=== PATIENT | male | born 1965 | race Caucasian/White ===

== ENCOUNTER 2017-06-16 18:22 | Inpatient (IN) | payer OTHER ==
[2017-06-16 20:02] VITALS: BP 123/68
[2017-06-16] MEDS ORDERED: SODIUM CHLORIDE FLUSH 10 ML SYR INJ PRN (20:15)
[2017-06-16] MEDS ORDERED: MAGNESIUM HYDROXIDE 30 ML UDC PO PRN (21:00)
[2017-06-16] MEDS ORDERED: BISMUTH SUBSALICYLATE 262 MG/15 ML 8OZ BTL PO PRN (21:00)
[2017-06-16] MEDS ORDERED: ZOLPIDEM TARTRATE 5 MG TAB PO PRN (21:00)
[2017-06-16] MEDS ORDERED: HYDROCODONE/APAP 5MG-325MG TAB PO PRN ×2 (21:00)
[2017-06-16] MEDS ORDERED: SODIUM CHLORIDE 0.9% 250ML 250 ML ONE (21:27)
[2017-06-16 21:31] LABS: INR 1.35; PROTHROMBIN TIME 15.7 seconds (11.9-14.5)
[2017-06-16 21:32] LABS: PARTIAL THROMBOPLASTIN TIME 30.9 seconds (23.8-35.5)
[2017-06-16] MEDS ORDERED: PIPER-TAZ 3.375 GM 50 ML IV SCH (22:00)
[2017-06-16] MEDS ORDERED: DEXTROSE 50% SYRINGE 50 ML IV PRN (22:15)
[2017-06-16] MEDS: PROMETHAZINE 25MG/ NS 50ML (IV) IV PRN (22:29)
--- NOTE | 2017-06-16 22:37 | Diagnostic Imaging Report ---
FOOT LEFT COMPLETE Comparison: None Clinical history: Osteomyelitis left foot Findings: Patchy demineralization of the base fifth digit metatarsal with intra-articular fracture. Associated soft tissue swelling. Impression: Intra-articular (subacute) fracture of the base of the fifth metatarsal. Patchy bony demineralization most consistent with underlying infection/osteomyelitis. Nonemergent follow-up MRI with and without IV contrast could be performed to better evaluate extent of disease. Signed by: Dr Brittaney Law MD on 06/16/2017 10:33 PM
[2017-06-16] MEDS: VANCOMYCIN 1GM/NS 250 ML 250 ML IV SCH (23:05)
[2017-06-16 23:45] VITALS: BP 128/72
[2017-06-17 01:48] VITALS: BP 123/68
[2017-06-17] MEDS: PROMETHAZINE 25MG/ NS 50ML (IV) IV PRN (02:52)
[2017-06-17 04:00] VITALS: BP 117/67
[2017-06-17] MEDS: PIPER-TAZ 3.375 GM 50 ML IV SCH ×3 (05:23→17:41)
[2017-06-17 06:02] LABS: BASOPHILS % 0.2 % (0.0-1.0); HEMATOCRIT 33.1 % (38.2-49.6); HEMOGLOBIN 11.4 g/dL (14.0-18.0); LYMPHOCYTES # (AUTO) 2.1 (1.0-3.2); LYMPHOCYTES % 12.3 % (18.0-39.1); MEAN CORPUSCULAR HEMOGLOBIN 30.1 pg (28-32); MEAN CORPUSCULAR HGB CONC 34.4 g/dL (31-35); MEAN CORPUSCULAR VOLUME 87.3 fL (81-99); MONOCYTES # (AUTO) 1.5 (0.2-0.8); MONOCYTES % 9.1 % (4.4-11.3); NEUTROPHILS # (AUTO) 13.2 (2.1-6.9); NEUTROPHILS % 77.9 % (38.7-80.0); PLATELET COUNT 288 x10e3/uL (140-360); RED BLOOD COUNT 3.79 x10e6/uL (4.3-5.7); RED CELL DISTRIBUTION WIDTH 11.4 % (11.7-14.4)
[2017-06-17 06:32] LABS: ALANINE AMINOTRANSFERASE 8 IU/L (0-55); ALBUMIN 2.8 g/dL (3.5-5.0); ALBUMIN/GLOBULIN RATIO 0.7 (0.8-2.0); ALKALINE PHOSPHATASE 79 IU/L (40-150); ANION GAP 11.7 mmol/L (8-16); BLOOD UREA NITROGEN 16 mg/dL (7-26); BUN/CREATININE RATIO 17 (6-25); CALCIUM 8.9 mg/dL (8.4-10.2); CARBON DIOXIDE 24 mmol/L (22-29); CHLORIDE 99 mmol/L (98-107); CREATININE, SERUM 0.95 mg/dL (0.72-1.25); EST GLOMERULAR FILTRATION RATE > 60 ML/MIN (60-); GLUCOSE 261 mg/dL (74-118); POTASSIUM 3.7 mmol/L (3.5-5.1); SODIUM 131 mmol/L (136-145)
--- NOTE | 2017-06-17 06:40 | Diagnostic Imaging Report ---
CHEST SINGLE (PORTABLE), 06/17/2017 7:00 AM Technique: CHEST SINGLE (PORTABLE) Comparison: None available. Clinical history: Surgical clearance, foot surgery Findings: Lingular atelectasis or scarring. Otherwise normal appearance of the heart, mediastinum, lungs and pleural spaces. Impression: 1. Lines/Tubes: None 2. No acute abnormality. Signed by: Dr Brittaney Law MD on 06/17/2017 6:36 AM
[2017-06-17] MEDS: INSULIN REGULAR, HUMAN 100 UNIT/1 ML 3ML VIAL SQ SCH ×4 (07:30→20:42)
[2017-06-17] MEDS: GLIPIZIDE 5 MG TAB ER PO SCH (08:15)
[2017-06-17] MEDS: VANCOMYCIN 1GM/NS 250 ML 250 ML IV SCH ×2 (08:15→21:25)
[2017-06-17] MEDS: LISINOPRIL 20 MG TAB PO SCH (08:15)
--- NOTE | 2017-06-17 11:08 | Diagnostic Imaging Report ---
TECHNIQUE: Magnetic resonance imaging of the left hindfoot was performed WITHOUT injected contrast. COMPARISON: Radiograph April 15, 2018 HISTORY: Pain, evaluate for osteomyelitis FINDINGS: Soft tissue ulceration of the lateral midfoot with sinus tract extending to the adjacent osseous structures. Extensive osteomyelitis within the fifth metatarsal from the base and extending distally. Probable mild osteomyelitis of the plantar cuboid Patchy heterogeneous marrow throughout the remainder of the midfoot and hindfoot. Atrophy of the foot musculature. IMPRESSION: Soft tissue ulceration of the lateral midfoot with extensive osteomyelitis of the fifth metatarsal and probable mild osteomyelitis of the plantar cuboid. Signed by: Dr. Angus Nesbitt M.D. on 06/17/2017 11:04 AM
--- NOTE | 2017-06-17 11:54 | Cardiology Report ---
DATE OF STUDY: June 17, 2017 DOPPLER SCAN OF LOWER EXTREMITIES VEINS BRICK GRADER: Chito Silveira MD DICTATION STOPPED AT THIS POINT. Job#: [id number] MH
[2017-06-17 12:00] VITALS: BP 108/63
--- NOTE | 2017-06-17 12:23 | Cardiology Report ---
DATE OF STUDY: June 17, 2017 DOPPLER SCAN OF THE LOWER EXTREMITY VEINS AGE: A 52-year-old male. ATTENDING PHYSICIAN: Tree Cain MD The lower extremity veins were interrogated using the duplex scanning method. The interrogation however appears to be limited and suboptimal in quality. The veins appear to be compressible. No definite deep venous thrombosis can be identified. CONCLUSIONS 1. Technically limited study with several areas not well visualized. 2. In the areas that were well visualized, no definite deep venous thrombosis could be identified bilaterally. Job#: [id number] PAT cc: Tree Cain MD
--- NOTE | 2017-06-17 15:26 | Consultation ---
DATE OF CONSULTATION: June 17, 2017 REASON FOR ADMISSION: Osteomyelitis, septicemia, left foot. CHIEF COMPLAINT AND HISTORY OF CHIEF COMPLAINT: Mr. Mynor Pierce is a most pleasant, 52-year-old gentleman who presents to [facility] for admission with osteomyelitis and signs and symptoms consistent with septicemia. Osteomyelitis is in the area of the 5th metatarsal of the left foot. The patient's previous medical history includes diabetes, hypertension and hypercholesterolemia. He has had previous foot infections and ulcerations which have healed without incident. REVIEW OF SYSTEMS: The patient has nausea, vomiting, fatigue, fever, chills on admission. He denies chest pain or palpitations. He states that he was in his normal state of health when he started noticing a red, swollen, draining area from the lateral aspect of the 5th metatarsal of the left foot. It became increasingly swollen, and he began to have the symptoms associated with fatigue and septicemia, which prompted his presentation to my office and ultimately admission to the hospital for IV antibiotics, further medical workup and treatment. PHYSICAL EXAMINATION/LOWER EXTREMITIES VASCULAR STATUS: The patient has palpable pedal pulses. NEUROLOGIC: He is showing signs and symptoms consistent with distal peripheral neuropathy including lack of sensation to Venus-Reyna monofilament testing. DERMATOLOGIC: There is a large ulcer, approximately 2.5 x 3 cm, on the dorsolateral aspect of the 5th metatarsal of the left foot. This is a full-thickness void through skin, subcutaneous tissue and fat. MUSCULOSKELETAL: Radiographs show mottled, patchy ossification of the lateral aspect of the 5th metatarsal with an intra-articular fracture, Charcot-type breakdown. There is also evidence of osteomyelitis on plain film. MRI, which was performed here in the hospital, is consistent with osteomyelitis through soft-tissue ulceration on the lateral mid foot with extensive osteomyelitis of the 5th metatarsal and probable osteomyelitis of the plantar cuboid. There is the heterogeneous marrow throughout the remainder of the mid foot and hindfoot with atrophy of the foot musculature. The ulceration with sinus tract is adjacent to the 5th met base where the extensive osteomyelitis is present. DIAGNOSIS: Osteomyelitis of at least 2 bones in the left foot with cellulitis and signs and symptoms consistent with septicemia. Deep wound cultures and sensitivities have been taken. The patient's white count is elevated at 17,000, and he is febrile on admission. The patient will have evaluation for vascular status, infectious disease consultation with Dr. Mendez, medical management by Dr. Cain, and IV antibiotics accordingly. Local wound care was initiated with a Betadine wet-to-dry to facilitate drying of the area. He will remain minimal to nonweightbearing. I will follow with him next week and continue on IV antibiotics and local wound care in the interim. Thank you very much, Dr. Cain and Dr. Mendez for your assistance on this case. Job#: [id number]
--- NOTE | 2017-06-17 15:40 | Consultation ---
DATE OF CONSULTATION: INFECTIOUS DISEASE CONSULTATION REASON FOR CONSULTATION: Osteomyelitis of the foot. HISTORY OF PRESENT ILLNESS: Thank you so much for asking me to see this patient. This is a patient who is a very pleasant 52-year-old gentleman who has history of diabetes mellitus, who works as a teacher. Apparently a month ago or so he got new running shoes and he was wearing it. The patient had a blister on his foot. He never made much of it, but it was getting progressively worse and started to have drainage. He went to see Dr. Garrido. Apparently he looked ill, and his office directed him to come to the hospital to be admitted. Patient was immediately started on antibiotic. He is feeling a little better. PAST MEDICAL HISTORY: This patient has a past medical history of diabetes mellitus with neuropathy, Charcot joint. He also has hypertension. PAST SURGICAL HISTORY: He denies. ALLERGIES: NKA. SOCIAL HISTORY: There is no smoking, drug abuse, alcohol abuse. FAMILY HISTORY: Otherwise hypertension, diabetes. REVIEW OF SYSTEMS HEENT: There is no headache or visual changes, hearing changes. GI: There is no nausea, no vomiting, no diarrhea. CARDIAC: There is no arrhythmia. NEURO: No seizure activity. SKIN: There is no other rash. JOINTS: No erythema or edema. ALL OTHER SYSTEMS: Within normal limits. LABORATORY DATA: On admission white count 16.9, hemoglobin 11.4, hematocrit 33. He had sed rate of 93. Sodium 131, potassium 3.7, creatinine of 0.95. C-reactive protein was pending. His cultures are still pending. He had an MRI of the foot with soft-tissue ulceration of the lateral midfoot with extensive osteomyelitis of the 5th metatarsal and possibly plantar cuboid. PHYSICAL EXAMINATION GENERAL: He is currently alert, oriented, does not seem to be in acute distress. VITAL SIGNS: Stable. Currently afebrile. HEENT: He does not appear icteric. NECK: Supple. CHEST: Clear bilaterally. HEART: S1 and S2. No S3 or S4, no murmur. ABDOMEN: Soft. Bowel sounds present. No tenderness. No hepatosplenomegaly. EXTREMITIES: There is an ulcer on the foot. IMPRESSION 1. Osteomyelitis of the foot in a patient who has diabetes mellitus, hypertension. Patient is going for surgical debridement next week. Discussed with Dr. Garrido. Will start him on intravenous. He is on vancomycin and Zosyn. Will obtain wound cultures. Will get a sed rate, C-reactive protein. 2. Will arrange outpatient IV antibiotic eventually. 3. Diabetes. 4. Charcot joint. 5. Hypertension. 6. Perhaps when the patient came he was a little bit septic with this, feeling weak and leukocytosis, but clinically he seems better now. Will follow with you. Job#: [id number] EV
[2017-06-17 16:00] VITALS: BP 104/69
[2017-06-17] MEDS: ACETAMINOPHEN 325 MG TAB PO PRN (16:23)
[2017-06-17 20:00] VITALS: BP 108/69
--- NOTE | 2017-06-17 20:00 | Diagnostic Imaging Report ---
EXAMINATION: CHEST XRAY LINE PLACEMENT INDICATION: \S\PICC placement COMPARISON: Chest x-ray 06/17/2017. FINDINGS: AP view TUBES and LINES: Right PICC line with tip in mid SVC. LUNGS: Lungs are well inflated. Focal airspace opacity in the left lung base. PLEURA: No pleural effusion or pneumothorax. HEART AND MEDIASTINUM: The cardiomediastinal silhouette is unremarkable. BONES AND SOFT TISSUES: No acute osseous lesion. Soft tissues are unremarkable. UPPER ABDOMEN: No free air under the diaphragm. IMPRESSION: 1. Right PICC line with tip at mid SVC. 2. Focal airspace opacity in the left lung base, likely pneumonia. Signed by: Dr. Alex Díaz M.D. on 06/17/2017 7:56 PM
[2017-06-17] MEDS: SIMVASTATIN 20 MG TAB PO SCH (20:36)
[2017-06-17 21:52] VITALS: BP 108/69
[2017-06-18] VITALS (7 sets, daily range): BP systolic 102–118; BP diastolic 66–82
[2017-06-18] MEDS: PIPER-TAZ 3.375 GM 50 ML IV SCH ×4 (00:41→18:04)
[2017-06-18] MEDS: ACETAMINOPHEN 325 MG TAB PO PRN ×2 (01:54→16:16)
[2017-06-18] MEDS: INSULIN REGULAR, HUMAN 100 UNIT/1 ML 3ML VIAL SQ SCH ×4 (08:17→21:07)
[2017-06-18] MEDS: VANCOMYCIN 1GM/NS 250 ML 250 ML IV SCH ×2 (08:17→21:01)
[2017-06-18] MEDS: LISINOPRIL 20 MG TAB PO SCH (08:17)
[2017-06-18] MEDS: GLIPIZIDE 5 MG TAB ER PO SCH (08:17)
--- NOTE | 2017-06-18 14:31 | Cardiology Report ---
DATE OF STUDY: DOPPLER SCAN OF THE LOWER EXTREMITY ARTERIES A 52-year-old male. The lower extremity arteries were interrogated using the duplex scanning method. The waveforms were predominantly biphasic and triphasic throughout. No segmental pressure measurements were submitted for interpretation. CONCLUSIONS: 1. No segmental pressure measurements or ankle brachial indices submitted for interpretation. 2. Based on waveforms, there is no high-grade stenosis or flow impairment involving the major arteries of the lower extremities bilaterally. Job#: [id number] EV cc:BRANDON BRANDT MD
[2017-06-18] MEDS: SIMVASTATIN 20 MG TAB PO SCH (21:01)
[2017-06-19] VITALS: BP 117/69
[2017-06-19] MEDS: PIPER-TAZ 3.375 GM 50 ML IV SCH ×4 (00:25→18:08)
[2017-06-19 04:00] VITALS: BP 112/72
[2017-06-19 07:17] LABS: BASOPHILS # (AUTO) 0.1 (0.0-0.1); BASOPHILS % 0.5 % (0.0-1.0); EOSINOPHILS # (AUTO) 0.1 (0.0-0.4); EOSINOPHILS % 1.4 % (0.0-6.0); HEMATOCRIT 33.6 % (38.2-49.6); HEMOGLOBIN 11.4 g/dL (14.0-18.0); LYMPHOCYTES # (AUTO) 2.1 (1.0-3.2); LYMPHOCYTES % 21.9 % (18.0-39.1); MEAN CORPUSCULAR HEMOGLOBIN 30.2 pg (28-32); MEAN CORPUSCULAR HGB CONC 33.9 g/dL (31-35); MEAN CORPUSCULAR VOLUME 89.1 fL (81-99); MONOCYTES # (AUTO) 0.9 (0.2-0.8); MONOCYTES % 9.7 % (4.4-11.3); NEUTROPHILS # (AUTO) 6.2 (2.1-6.9); NEUTROPHILS % 66.1 % (38.7-80.0); PLATELET COUNT 304 x10e3/uL (140-360); RED BLOOD COUNT 3.77 x10e6/uL (4.3-5.7); RED CELL DISTRIBUTION WIDTH 11.5 % (11.7-14.4)
[2017-06-19] MEDS: INSULIN REGULAR, HUMAN 100 UNIT/1 ML 3ML VIAL SQ SCH ×4 (07:30→20:25)
[2017-06-19 07:40] LABS: ANION GAP 10.6 mmol/L (8-16); BLOOD UREA NITROGEN 8 mg/dL (7-26); BUN/CREATININE RATIO 9 (6-25); CALCIUM 8.4 mg/dL (8.4-10.2); CARBON DIOXIDE 28 mmol/L (22-29); CHLORIDE 99 mmol/L (98-107); CREATININE, SERUM 0.85 mg/dL (0.72-1.25); EST GLOMERULAR FILTRATION RATE > 60 ML/MIN (60-); GLUCOSE 340 mg/dL (74-118); POTASSIUM 3.6 mmol/L (3.5-5.1); SODIUM 134 mmol/L (136-145)
[2017-06-19 07:59] VITALS: BP 105/56
[2017-06-19] MEDS: VANCOMYCIN 1GM/NS 250 ML 250 ML IV SCH ×2 (09:00→20:29)
[2017-06-19] MEDS ORDERED: INSULIN DETEMIR 100 UNIT/ML PEN SQ SCH (09:00)
[2017-06-19] MEDS: LISINOPRIL 20 MG TAB PO SCH (09:00)
[2017-06-19] MEDS: GLIPIZIDE 5 MG TAB ER PO SCH (09:00)
[2017-06-19] MEDS: INSULIN DETEMIR 100 UNIT/ML PEN SQ SCH (20:25)
[2017-06-19 20:26] VITALS: BP 115/68
[2017-06-19] MEDS: ACETAMINOPHEN 325 MG TAB PO PRN (20:29)
[2017-06-19] MEDS: SIMVASTATIN 20 MG TAB PO SCH (20:29)
[2017-06-20] VITALS: BP 112/68
[2017-06-20] MEDS: PIPER-TAZ 3.375 GM 50 ML IV SCH ×2 (00:54→05:54)
[2017-06-20 04:00] VITALS: BP 124/67
[2017-06-20 07:10] LABS: BASOPHILS % 0.5 % (0.0-1.0); EOSINOPHILS # (AUTO) 0.3 (0.0-0.4); EOSINOPHILS % 3.1 % (0.0-6.0); HEMATOCRIT 32.1 % (38.2-49.6); HEMOGLOBIN 10.8 g/dL (14.0-18.0); LYMPHOCYTES % 24.1 % (18.0-39.1); MEAN CORPUSCULAR HEMOGLOBIN 29.7 pg (28-32); MEAN CORPUSCULAR HGB CONC 33.6 g/dL (31-35); MEAN CORPUSCULAR VOLUME 88.2 fL (81-99); MONOCYTES # (AUTO) 0.9 (0.2-0.8); MONOCYTES % 10.4 % (4.4-11.3); NEUTROPHILS # (AUTO) 5.1 (2.1-6.9); NEUTROPHILS % 61.4 % (38.7-80.0); PLATELET COUNT 297 x10e3/uL (140-360); RED BLOOD COUNT 3.64 x10e6/uL (4.3-5.7); RED CELL DISTRIBUTION WIDTH 11.4 % (11.7-14.4)
[2017-06-20] MEDS: INSULIN REGULAR, HUMAN 100 UNIT/1 ML 3ML VIAL SQ SCH ×4 (07:30→20:28)
--- NOTE | 2017-06-20 07:44 | Progress Note ---
DATE: June 19, [address] Peter dictating covering for Dr. Tony Garrido. The patient was seen at bedside. No apparent distress. His white blood count is improving. He is now at 9.4 from 16.99. His MRI is positive for osteomyelitis of the 5th metatarsal base in the cuboid. Currently, he is on IV antibiotics, which he is responding to. His culture is positive for gram-negative bacillus. It is pending susceptibility. IV antibiotics, he is on vanc and Zosyn. The wound is improving. Erythema and edema are localizing. The culture is still down to the area of the bone. ASSESSMENT 1. Diabetes with neuropathy. 2. Ulcer, grade 3. PLAN: At this point, his responding well to the IV antibiotics and local wound care. The patient is aware that he is going to need a possible debridement of the nonviable tissue to include bone. Dr. Garrido will continue to follow. The plan is for possible debridement early next week. Job#: [id number] ANKITA
[2017-06-20 08:00] VITALS: BP 117/75
[2017-06-20] MEDS: GLIPIZIDE 5 MG TAB ER PO SCH (08:00)
[2017-06-20] MEDS: LISINOPRIL 20 MG TAB PO SCH (09:00)
[2017-06-20] MEDS: INSULIN DETEMIR 100 UNIT/ML PEN SQ SCH ×2 (09:00→20:29)
[2017-06-20] MEDS: VANCOMYCIN 1GM/NS 250 ML 250 ML IV SCH ×2 (09:00→20:26)
[2017-06-20 12:00] VITALS: BP 115/70
[2017-06-20] MEDS: MEROPENEM 500 MG VIAL IV SCH ×2 (12:00→17:15)
[2017-06-20] MEDS ORDERED: MEROPENEM 500MG 500 MG in SODIUM CHLORIDE 0.9% 50ML 50 ML IV SCH (12:00)
--- NOTE | 2017-06-20 14:53 | Progress Note ---
DATE: June 20, 2017 Patient seen today relating he is feeling much better. Labs were reviewed. White count is significantly reduced. The patient is afebrile today. He has been on IV antibiotics with local wound care over the weekend. At this point, the foot is quite cellulitic with a significant amount of edema present. There is necrotic tissue in the wound base, which includes styloid process and its important insertions of peroneal brevis tendon as well as leija dorsiflexors of the foot. What I recommend at this point is further IV antibiotics and local wound care and debridement of all devitalized tissue to include skin, soft tissue, tendon and bone once the most significant part of the cellulitis has resolved, targeting Tuesday morning for this surgery. The patient understands and has agreed to accept all risks inherent to the procedure. I will follow with further surgical consultation and would recommend IV antibiotics after discharge for 6 to 8 weeks via infusion suite or home health as deemed appropriate. Job#: [id number]
[2017-06-20 20:23] VITALS: BP 143/76
[2017-06-20] MEDS: SIMVASTATIN 20 MG TAB PO SCH (20:26)
[2017-06-21] VITALS (7 sets, daily range): BP systolic 118–147; BP diastolic 65–84
[2017-06-21] MEDS: MEROPENEM 500 MG VIAL IV SCH ×4 (00:16→17:52)
[2017-06-21] MEDS: INSULIN REGULAR, HUMAN 100 UNIT/1 ML 3ML VIAL SQ SCH ×4 (07:30→20:43)
[2017-06-21] MEDS: GLIPIZIDE 5 MG TAB ER PO SCH (08:00)
[2017-06-21] MEDS: LISINOPRIL 20 MG TAB PO SCH (08:54)
[2017-06-21] MEDS: VANCOMYCIN 1GM/NS 250 ML 250 ML IV SCH ×2 (08:54→21:25)
[2017-06-21] MEDS: INSULIN DETEMIR 100 UNIT/ML PEN SQ SCH ×2 (09:00→20:43)
[2017-06-21] MEDS: SIMVASTATIN 20 MG TAB PO SCH (21:25)
[2017-06-22] MEDS: MEROPENEM 500 MG VIAL IV SCH ×4 (00:17→18:08)
[2017-06-22 00:45] VITALS: BP 133/87
[2017-06-22 05:10] VITALS: BP 146/89
[2017-06-22 08:00] VITALS: BP 144/75
[2017-06-22] MEDS: GLIPIZIDE 5 MG TAB ER PO SCH (08:00)
[2017-06-22] MEDS: LISINOPRIL 20 MG TAB PO SCH (08:30)
[2017-06-22] MEDS: INSULIN DETEMIR 100 UNIT/ML PEN SQ SCH ×2 (08:30→22:10)
[2017-06-22] MEDS: INSULIN REGULAR, HUMAN 100 UNIT/1 ML 3ML VIAL SQ SCH ×4 (08:30→22:09)
[2017-06-22] MEDS: VANCOMYCIN 1GM/NS 250 ML 250 ML IV SCH (09:30)
--- NOTE | 2017-06-22 11:01 | Progress Note ---
DATE: HOSPITAL VISIT Patient is seen today for surgical consent. All questions asked were answered. Patient has agreed to accept all risks inherent of the procedure. He will be transported to the OR for debridement of his left foot to include soft tissue and bone. The patient has agreed to accept all risks inherent to the procedure and will remain on local wound care and IV antibiotics postoperatively. Job#: [id number]
[2017-06-22] MEDS ORDERED: BUPIVACAINE 0.25% 30ML SDV INJ ONE (12:18)
[2017-06-22] MEDS ORDERED: BACITRACIN 50,000 UNIT VIAL ONE (13:25)
[2017-06-22] MEDS ORDERED: VANCOMYCIN HCL 1 GM VIAL ONE (13:25)
[2017-06-22] MEDS ORDERED: ONDANSETRON HCL INJ 2 MG/ML VIAL ONE (15:16)
[2017-06-22] MEDS ORDERED: LIDOCAINE HCL 2% LOCAL INJ 5 ML SDV VIAL INJ ONE (15:16)
[2017-06-22] MEDS ORDERED: PROPOFOL IV EMULSION 10 MG/ML 20 ML VIAL ONE (15:16)
[2017-06-22] MEDS ORDERED: DEXAMETHASONE SOD PHOS INJ 4 MG/ML VIAL ONE (15:16)
[2017-06-22] MEDS ORDERED: SEVOFLURANE INHAL SOLN 250 ML PEN BTL ONE (15:16)
--- NOTE | 2017-06-22 15:44 | Progress Note ---
DATE: Mr. Pierce is doing well. There is no new complaints. PHYSICAL EXAMINATION GENERAL: Alert, oriented, does not seem to be in acute distress. VITAL SIGNS: Stable, currently afebrile. HEENT: Not icteric. NECK: Supple. CHEST: Clear bilaterally. ABDOMEN: Soft. Bowel sounds present. No tenderness. No hepatosplenomegaly. EXTREMITIES: No edema. The patient underwent debridement to the bone and the wound on the left foot today by Dr. Garrido. IMPRESSION: Osteomyelitis of the left foot. He grew Providencia and Streptococcus agalactiae. PLAN: Will arrange for meropenem 500 IV q.8 h. for 8 weeks. Discontinue other antibiotics. Will follow weekly CBC with a chem panel. He will need at least 6-8 weeks of IV antibiotics depending on is progress. Job#: [id number]
[2017-06-22 16:00] VITALS: BP 131/77
[2017-06-22 19:10] VITALS: BP 134/80
[2017-06-22] MEDS ORDERED: MIDAZOLAM HCL 2 MG/2 ML VIAL ONE (19:18)
[2017-06-22] MEDS ORDERED: FENTANYL CITRATE/PF 100MCG/2 ML INJ ONE (19:18)
--- NOTE | 2017-06-22 19:25 | Operative Report ---
DATE OF PROCEDURE: June 22, 2017 AGE: 52 ROOM NUMBER: [facility] PREOPERATIVE DIAGNOSIS: Osteomyelitis with necrotic wound lateral aspect of the left foot. POSTOPERATIVE DIAGNOSIS: Osteomyelitis with necrotic wound lateral aspect of the left foot. TITLE OF OPERATION: Incision and drainage with deep wound debridement through skin, subcutaneous tissue, including bone and joint, left foot. ANESTHESIA: General endotracheal. HEMOSTASIS: A left thigh tourniquet 350 mmHg. PROCEDURE IN DETAIL: The patient was taken to the operating room in a mildly sedated state and placed upon the operating table in supine position. Following induction of general anesthetic, the left lower extremity was elevated at 60 degrees to exsanguinate before inflating the pneumatic thigh tourniquet to 350 mmHg to create hemostasis. Left lower extremity was placed upon the operating table prior to performing the following procedure. The foot had been prepped in usual aseptic manner utilizing Betadine prep, placed on the operating table prior to performing the following procedure. An I and D. A linear longitudinal incision made through the necrotic soft tissue including tendon and subcutaneous tissue on the lateral aspect of the left foot. This wound measuring approximately 5 cm in circumference with the necrotic wound base. Radiographs had shown not only osteomyelitis, but also a fracture of the 5th met base. Incision was deepened via sharp and blunt dissection onto the level of the fractured bone. All superficial wound tissue was reduced and debrided. A very large flap was created dorsally to allow for exposure of the base of the 5th metatarsal, all soft tissue and tendinous insertions, as well as the lateral aspect of the cuboid bone. The necrotic tendon was debrided away and the peroneus longus was left intact as it courses underneath the infected joint space. The remaining tendons were all debrided as necrotic. Fairly significant amount of purulent exudate was present within the joint space itself and the fracture fragments were all identified. The 5th metatarsal base was transected with oscillating saw mid shaft and debrided away from the underlying tissue. The lateral aspect of the 5th met base was also debrided utilizing combination of curettes, rongeur, and oscillating saw. The area was inspected for any further suspicious material none being found. The area was freed of all surrounding and constricting tissues and the flap for closure was fashioned. A significant amount of necrotic tissue that extended into the dorsolateral aspect of the foot as well as plantar lateral aspect of the foot was noted and antibiotic beads were packed into the space dorsally, plantarly, and along the lateral aspect of the wound. The flap closure was created in such a way to allow for re-approximation of the proximal and distal tissues. However, the central portion overlying the large excised wound was packed open with iodoform gauze over the deep tissues and antibiotic beads. After packing, I released the pneumatic thigh tourniquet showed a normal hyperemic flush to all digits of the left foot. Flap closure was noted to be viable and the appropriate mildly compressive dressings were applied. Posterior splint was applied. The area was blocked with 0.5 Marcaine, Decadron [place]. Released the pneumatic thigh tourniquet, showed a normal hyperemic flush to all digits of the left foot. Patient left the operating room with vital signs stable in apparent satisfactory condition, having tolerated both anesthetic and procedure very well. Deep culture and sensitivities had been obtained prior to any antibiotic irrigation or debridement. The bone was sent for biopsy and all remaining tissues were sent for pathological confirmation as well. The patient left the operating room with vital signs stable in apparent satisfactory condition, having tolerated both anesthetic and procedure very well. He will be transported back to the floor for further care and medical stabilization and should be able to transition to outpatient local wound care and continued IV antibiotics for the next 6 to 8 weeks within the next day or 2. Job#: [id number] CQ
[2017-06-22 20:00] VITALS: BP 134/80
[2017-06-22] MEDS: PROMETHAZINE 25MG/ NS 50ML (IV) IV PRN (20:28)
[2017-06-22] MEDS: SIMVASTATIN 20 MG TAB PO SCH (22:08)
[2017-06-23 00:01] VITALS: BP 147/89
[2017-06-23] MEDS: MEROPENEM 500 MG VIAL IV SCH ×4 (00:44→18:17)
[2017-06-23 07:58] VITALS: BP 124/65
[2017-06-23] MEDS: INSULIN REGULAR, HUMAN 100 UNIT/1 ML 3ML VIAL SQ SCH ×4 (08:15→22:05)
[2017-06-23] MEDS: LISINOPRIL 20 MG TAB PO SCH (08:15)
[2017-06-23] MEDS: INSULIN DETEMIR 100 UNIT/ML PEN SQ SCH ×2 (08:15→22:05)
[2017-06-23] MEDS: GLIPIZIDE 5 MG TAB ER PO SCH (08:15)
[2017-06-23 12:07] VITALS: BP 122/70
--- NOTE | 2017-06-23 14:45 | Progress Note ---
DATE: SUBJECTIVE: Patient is seen today status post surgical intervention on his left lower extremity. The wound dressing and posterior splint were removed and underlying tissue evaluated. Flap closure distally and proximally are viable. The central wound base is clean with serosanguineous drainage. No purulent exudate. No foul odor. Packing was removed and replaced today. The remaining void is full thickness and approximately 3 cm in circumference. Will require wound VAC. Wound VAC was ordered, and the patient is okay for discharge once home health and IV antibiotics can be established. Patient understands and will be following with me within 1 week after discharge in the office, but in the interim I will follow him until discharge. Job#: [id number]
[2017-06-23 16:16] VITALS: BP 125/77
[2017-06-23] MEDS ORDERED: CEFTRIAXONE SOD 1 GM VIAL IV SCH (16:30)
[2017-06-23 19:10] VITALS: BP 121/68
[2017-06-23 20:00] VITALS: BP 121/68
[2017-06-23] MEDS: SIMVASTATIN 20 MG TAB PO SCH (22:04)
[2017-06-24] VITALS: BP 133/72
[2017-06-24] MEDS: MEROPENEM 500 MG VIAL IV SCH ×3 (00:35→12:00)
[2017-06-24 04:00] VITALS: BP 128/71
[2017-06-24] MEDS: INSULIN REGULAR, HUMAN 100 UNIT/1 ML 3ML VIAL SQ SCH ×3 (07:30→16:30)
[2017-06-24 08:00] VITALS: BP 128/71
[2017-06-24] MEDS: GLIPIZIDE 5 MG TAB ER PO SCH (08:00)
[2017-06-24 08:15] VITALS: BP 132/84
[2017-06-24] MEDS: INSULIN DETEMIR 100 UNIT/ML PEN SQ SCH (09:00)
[2017-06-24] MEDS: LISINOPRIL 20 MG TAB PO SCH (09:00)
[2017-06-24 16:17] VITALS: BP 119/57
[2017-06-24 16:23] VITALS: BP 119/57
== END 2017-06-24 16:52 | disposition home or self-care (01) | DRG 854 ==
LOC: MED/SURG2 18:22
PROVIDERS: ADMIT Internal Medicine; ATTEND Internal Medicine
PROC: 02HV33Z Insertion of Infusion Device into Superior Vena Cava, Percutaneous Approach (ICD-10-PCS; 2017-06-17)
PROC: 3E01329 Introduction of Other Anti-infective into Subcutaneous Tissue, Percutaneous Approach (ICD-10-PCS; 2017-06-22)
PROC: 0QBP0ZZ Excision of Left Metatarsal, Open Approach (ICD-10-PCS; principal; 2017-06-22 13:04)
DX: A41.89 Other specified sepsis (principal); M86.9 Osteomyelitis, unspecified; E11.610 Type 2 diabetes mellitus with diabetic neuropathic arthropathy; E11.69 Type 2 diabetes mellitus with other specified complication; Z79.4 Long term (current) use of insulin; D64.9 Anemia, unspecified; L97.524 Non-pressure chronic ulcer of other part of left foot with necrosis of bone; E11.65 Type 2 diabetes mellitus with hyperglycemia
CPT/HCPCS: 36415; 36569; 71045; 76000; 80048; 80053; 80202; 82948; 83036; 85025; 85610; 85651; 85730; 86140; 87040; 87071; 87075; 87086; 87186; 87205; 88305; 88311; 93005; 93925; 93970; 97605; C1713; J0696; J1100; J2001; J2185; J2250; J2405; J2543; J2550; J3370; J7050

== ENCOUNTER → 2017-06-29 | Outpatient (CLI) | payer OTHER ==
[~2017-06-29] MED LIST: MINERAL OIL/PETROLAT/GLYCERI 6OZ BTL ONE
== END ==
LOC: WCC 10:00
PROVIDERS: ATTEND Podiatrist Foot Surgery
DX: E11.621 Type 2 diabetes mellitus with foot ulcer (principal); L97.428 Non-pressure chronic ulcer of left heel and midfoot with other specified severity; L97.421 Non-pressure chronic ulcer of left heel and midfoot limited to breakdown of skin; R73.9 Hyperglycemia, unspecified; I10 Essential (primary) hypertension; E78.00 Pure hypercholesterolemia, unspecified
CPT/HCPCS: 36415; 82948

== ENCOUNTER → 2017-07-01 | Outpatient (CLI) | payer OTHER | LOC: WCC 09:47 | PROVIDERS: ATTEND Podiatrist Foot Surgery | DX: E11.621 Type 2 diabetes mellitus with foot ulcer (principal); L97.421 Non-pressure chronic ulcer of left heel and midfoot limited to breakdown of skin; L97.429 Non-pressure chronic ulcer of left heel and midfoot with unspecified severity; R73.9 Hyperglycemia, unspecified; I10 Essential (primary) hypertension | CPT/HCPCS: 36415; 82948 ==

== ENCOUNTER → 2017-07-06 | Outpatient (CLI) | payer OTHER | LOC: WCC 08:35 | PROVIDERS: ATTEND Podiatrist Foot Surgery | DX: E11.621 Type 2 diabetes mellitus with foot ulcer (principal); L97.421 Non-pressure chronic ulcer of left heel and midfoot limited to breakdown of skin; L97.428 Non-pressure chronic ulcer of left heel and midfoot with other specified severity; R73.9 Hyperglycemia, unspecified; I10 Essential (primary) hypertension; E78.00 Pure hypercholesterolemia, unspecified ==

== ENCOUNTER → 2017-07-08 | Outpatient (CLI) | payer OTHER | LOC: WCC 09:35 | PROVIDERS: ATTEND Podiatrist Foot Surgery | DX: E11.621 Type 2 diabetes mellitus with foot ulcer (principal); L97.428 Non-pressure chronic ulcer of left heel and midfoot with other specified severity; R73.9 Hyperglycemia, unspecified; I10 Essential (primary) hypertension; E78.00 Pure hypercholesterolemia, unspecified | CPT/HCPCS: 36415; 82948 ==

== ENCOUNTER → 2017-07-12 | Outpatient (CLI) | payer OTHER | LOC: WCC 09:10 | PROVIDERS: ATTEND Podiatrist Foot Surgery | DX: E11.621 Type 2 diabetes mellitus with foot ulcer (principal); L97.428 Non-pressure chronic ulcer of left heel and midfoot with other specified severity; R73.9 Hyperglycemia, unspecified; I10 Essential (primary) hypertension; E78.00 Pure hypercholesterolemia, unspecified ==

== ENCOUNTER → 2017-07-15 | Outpatient (CLI) | payer OTHER | LOC: WCC 09:59 | PROVIDERS: ATTEND Podiatrist Foot Surgery | DX: E11.621 Type 2 diabetes mellitus with foot ulcer (principal); L97.428 Non-pressure chronic ulcer of left heel and midfoot with other specified severity; R73.9 Hyperglycemia, unspecified; I10 Essential (primary) hypertension; E78.00 Pure hypercholesterolemia, unspecified ==

== ENCOUNTER → 2017-07-19 | Outpatient (CLI) | payer OTHER ==
[2017-07-19 11:37] LABS: BASOPHILS % 0.7 % (0.0-1.0); EOSINOPHILS # (AUTO) 0.2 (0.0-0.4); EOSINOPHILS % 2.7 % (0.0-6.0); HEMOGLOBIN 12.2 g/dL (14.0-18.0); LYMPHOCYTES # (AUTO) 1.7 (1.0-3.2); LYMPHOCYTES % 28.4 % (18.0-39.1); MEAN CORPUSCULAR HEMOGLOBIN 29.1 pg (28-32); MEAN CORPUSCULAR VOLUME 88.3 fL (81-99); MONOCYTES # (AUTO) 0.6 (0.2-0.8); MONOCYTES % 9.7 % (4.4-11.3); NEUTROPHILS # (AUTO) 3.4 (2.1-6.9); NEUTROPHILS % 58.2 % (38.7-80.0); PLATELET COUNT 206 x10e3/uL (140-360); RED BLOOD COUNT 4.19 x10e6/uL (4.3-5.7); RED CELL DISTRIBUTION WIDTH 12.6 % (11.7-14.4)
[2017-07-19 11:57] LABS: ALANINE AMINOTRANSFERASE 12 IU/L (0-55); ALBUMIN 3.5 g/dL (3.5-5.0); ALBUMIN/GLOBULIN RATIO 0.9 (0.8-2.0); ALKALINE PHOSPHATASE 108 IU/L (40-150); ANION GAP 11.3 mmol/L (8-16); BLOOD UREA NITROGEN 14 mg/dL (7-26); BUN/CREATININE RATIO 16 (6-25); CALCIUM 9.2 mg/dL (8.4-10.2); CARBON DIOXIDE 25 mmol/L (22-29); CHLORIDE 94 mmol/L (98-107); CREATININE, SERUM 0.88 mg/dL (0.72-1.25); EST GLOMERULAR FILTRATION RATE > 60 ML/MIN (60-); GLUCOSE 319 mg/dL (74-118); POTASSIUM 4.3 mmol/L (3.5-5.1); SODIUM 126 mmol/L (136-145)
== END ==
LOC: WCC 09:33
PROVIDERS: ATTEND Podiatrist Foot Surgery
DX: E11.621 Type 2 diabetes mellitus with foot ulcer (principal); L97.429 Non-pressure chronic ulcer of left heel and midfoot with unspecified severity; R73.9 Hyperglycemia, unspecified; I10 Essential (primary) hypertension
CPT/HCPCS: 36415; 80053; 83036; 84134; 85025

== ENCOUNTER → 2017-07-22 | Outpatient (CLI) | payer OTHER | LOC: WCC 09:39 | PROVIDERS: ATTEND Podiatrist Foot Surgery | DX: E11.621 Type 2 diabetes mellitus with foot ulcer (principal); L97.428 Non-pressure chronic ulcer of left heel and midfoot with other specified severity; R73.9 Hyperglycemia, unspecified; I10 Essential (primary) hypertension; E78.00 Pure hypercholesterolemia, unspecified ==

== ENCOUNTER → 2017-07-25 | Outpatient (CLI) | payer OTHER | LOC: WCC 08:44 | PROVIDERS: ATTEND Podiatrist Foot Surgery | DX: E11.621 Type 2 diabetes mellitus with foot ulcer (principal); L97.428 Non-pressure chronic ulcer of left heel and midfoot with other specified severity; R73.9 Hyperglycemia, unspecified; I10 Essential (primary) hypertension; E78.00 Pure hypercholesterolemia, unspecified | CPT/HCPCS: 36415; 82948 ==

== ENCOUNTER → 2017-07-28 | Outpatient (CLI) | payer OTHER | LOC: WCC 08:45 | PROVIDERS: ATTEND Podiatrist Foot Surgery | DX: E11.621 Type 2 diabetes mellitus with foot ulcer (principal); L97.428 Non-pressure chronic ulcer of left heel and midfoot with other specified severity; R73.9 Hyperglycemia, unspecified; I10 Essential (primary) hypertension; E78.00 Pure hypercholesterolemia, unspecified ==

== ENCOUNTER → 2017-08-04 | Outpatient (CLI) | payer OTHER ==
[~2017-08-04] MED LIST changes: -MINERAL OIL/PETROLAT/GLYCERI 6OZ BTL ONE; +MUPIROCIN 2% OINT 22 GM TUBE ONE
== END ==
LOC: WCC 08:39
PROVIDERS: ATTEND Podiatrist Foot Surgery
DX: E11.621 Type 2 diabetes mellitus with foot ulcer (principal); L97.428 Non-pressure chronic ulcer of left heel and midfoot with other specified severity; L97.418 Non-pressure chronic ulcer of right heel and midfoot with other specified severity; L97.411 Non-pressure chronic ulcer of right heel and midfoot limited to breakdown of skin; R73.9 Hyperglycemia, unspecified; I10 Essential (primary) hypertension
CPT/HCPCS: 36415; 82948

== ENCOUNTER → 2017-08-08 | Outpatient (CLI) | payer OTHER ==
[~2017-08-08] MED LIST changes: +MINERAL OIL/PETROLAT/GLYCERI 6OZ BTL ONE; -MUPIROCIN 2% OINT 22 GM TUBE ONE
== END ==
LOC: WCC 09:10
PROVIDERS: ATTEND Podiatrist Foot Surgery
DX: E11.621 Type 2 diabetes mellitus with foot ulcer (principal); E11.622 Type 2 diabetes mellitus with other skin ulcer; L97.428 Non-pressure chronic ulcer of left heel and midfoot with other specified severity; L97.418 Non-pressure chronic ulcer of right heel and midfoot with other specified severity; L97.411 Non-pressure chronic ulcer of right heel and midfoot limited to breakdown of skin; L97.319 Non-pressure chronic ulcer of right ankle with unspecified severity; R73.9 Hyperglycemia, unspecified; I10 Essential (primary) hypertension; E78.00 Pure hypercholesterolemia, unspecified
CPT/HCPCS: 36415; 82948

== ENCOUNTER → 2017-08-11 | Outpatient (CLI) | payer OTHER | LOC: WCC 08:49 | PROVIDERS: ATTEND Podiatrist Foot Surgery | DX: E11.621 Type 2 diabetes mellitus with foot ulcer (principal); E11.622 Type 2 diabetes mellitus with other skin ulcer; L97.428 Non-pressure chronic ulcer of left heel and midfoot with other specified severity; L97.418 Non-pressure chronic ulcer of right heel and midfoot with other specified severity; L97.319 Non-pressure chronic ulcer of right ankle with unspecified severity; R73.9 Hyperglycemia, unspecified; I10 Essential (primary) hypertension ==

== ENCOUNTER → 2017-08-16 | Outpatient (CLI) | payer OTHER | LOC: WCC 08:35 | PROVIDERS: ATTEND Podiatrist Foot Surgery | DX: E11.621 Type 2 diabetes mellitus with foot ulcer (principal); E11.622 Type 2 diabetes mellitus with other skin ulcer; L97.428 Non-pressure chronic ulcer of left heel and midfoot with other specified severity; L97.319 Non-pressure chronic ulcer of right ankle with unspecified severity; L97.418 Non-pressure chronic ulcer of right heel and midfoot with other specified severity; R73.9 Hyperglycemia, unspecified; I10 Essential (primary) hypertension ==

== ENCOUNTER → 2017-08-19 | Outpatient (CLI) | payer OTHER | LOC: WCC 09:12 | PROVIDERS: ATTEND Podiatrist Foot Surgery | DX: E11.621 Type 2 diabetes mellitus with foot ulcer (principal); E11.622 Type 2 diabetes mellitus with other skin ulcer; L97.428 Non-pressure chronic ulcer of left heel and midfoot with other specified severity; L97.319 Non-pressure chronic ulcer of right ankle with unspecified severity; L97.418 Non-pressure chronic ulcer of right heel and midfoot with other specified severity; R73.9 Hyperglycemia, unspecified; I10 Essential (primary) hypertension; E78.00 Pure hypercholesterolemia, unspecified | CPT/HCPCS: 36415; 82948 ==

== ENCOUNTER → 2017-08-22 | Outpatient (CLI) | payer OTHER ==
[~2017-08-22] MED LIST changes: +COLLAGENASE OINTMENT 30 GM TUBE ONE; +MUPIROCIN 2% OINT 22 GM TUBE ONE
== END ==
LOC: WCC 08:15
PROVIDERS: ATTEND Podiatrist Foot Surgery
DX: E11.621 Type 2 diabetes mellitus with foot ulcer (principal); E11.622 Type 2 diabetes mellitus with other skin ulcer; L97.428 Non-pressure chronic ulcer of left heel and midfoot with other specified severity; L97.319 Non-pressure chronic ulcer of right ankle with unspecified severity; L97.418 Non-pressure chronic ulcer of right heel and midfoot with other specified severity
CPT/HCPCS: 36415; 82948

== ENCOUNTER → 2017-08-25 | Outpatient (CLI) | payer OTHER | LOC: WCC 09:27 | PROVIDERS: ATTEND Podiatrist Foot Surgery | DX: E11.621 Type 2 diabetes mellitus with foot ulcer (principal); E11.622 Type 2 diabetes mellitus with other skin ulcer; L97.428 Non-pressure chronic ulcer of left heel and midfoot with other specified severity; L97.418 Non-pressure chronic ulcer of right heel and midfoot with other specified severity; L97.319 Non-pressure chronic ulcer of right ankle with unspecified severity ==

== ENCOUNTER → 2017-08-29 | Outpatient (CLI) | payer OTHER | LOC: WCC 09:38 | PROVIDERS: ATTEND Podiatrist Foot Surgery | DX: E11.621 Type 2 diabetes mellitus with foot ulcer (principal); E11.622 Type 2 diabetes mellitus with other skin ulcer; L97.428 Non-pressure chronic ulcer of left heel and midfoot with other specified severity; L97.319 Non-pressure chronic ulcer of right ankle with unspecified severity; L97.418 Non-pressure chronic ulcer of right heel and midfoot with other specified severity; R73.9 Hyperglycemia, unspecified; I10 Essential (primary) hypertension; E78.00 Pure hypercholesterolemia, unspecified ==

== ENCOUNTER → 2017-09-02 | Outpatient (CLI) | payer OTHER ==
[~2017-09-02] MED LIST changes: -MINERAL OIL/PETROLAT/GLYCERI 6OZ BTL ONE; -MUPIROCIN 2% OINT 22 GM TUBE ONE
== END ==
LOC: WCC 09:46
PROVIDERS: ATTEND Podiatrist Foot Surgery
DX: E11.621 Type 2 diabetes mellitus with foot ulcer (principal); E11.622 Type 2 diabetes mellitus with other skin ulcer; L97.428 Non-pressure chronic ulcer of left heel and midfoot with other specified severity; L97.418 Non-pressure chronic ulcer of right heel and midfoot with other specified severity; L97.319 Non-pressure chronic ulcer of right ankle with unspecified severity; R73.9 Hyperglycemia, unspecified; I10 Essential (primary) hypertension; E78.00 Pure hypercholesterolemia, unspecified

== ENCOUNTER → 2017-09-06 | Outpatient (CLI) | payer OTHER | LOC: WCC 08:48 | PROVIDERS: ATTEND Podiatrist Foot Surgery | DX: E11.621 Type 2 diabetes mellitus with foot ulcer (principal); L97.428 Non-pressure chronic ulcer of left heel and midfoot with other specified severity; L97.418 Non-pressure chronic ulcer of right heel and midfoot with other specified severity; R73.9 Hyperglycemia, unspecified; I10 Essential (primary) hypertension; E78.00 Pure hypercholesterolemia, unspecified ==

== ENCOUNTER → 2017-09-09 | Outpatient (CLI) | payer OTHER | LOC: WCC 11:38 | PROVIDERS: ATTEND Podiatrist Foot Surgery | DX: E11.621 Type 2 diabetes mellitus with foot ulcer (principal); R73.9 Hyperglycemia, unspecified; L97.428 Non-pressure chronic ulcer of left heel and midfoot with other specified severity; L97.418 Non-pressure chronic ulcer of right heel and midfoot with other specified severity; I10 Essential (primary) hypertension; E78.00 Pure hypercholesterolemia, unspecified ==

== ENCOUNTER → 2017-09-13 | Outpatient (CLI) | payer OTHER ==
[~2017-09-13] MED LIST changes: -COLLAGENASE OINTMENT 30 GM TUBE ONE; +LIDOCAINE VISC 2% SOLN 15 ML UDC ONE; +MUPIROCIN 2% OINT 22 GM TUBE ONE
== END ==
LOC: WCC 09:09
PROVIDERS: ATTEND Podiatrist Foot Surgery
DX: E11.621 Type 2 diabetes mellitus with foot ulcer (principal); L97.418 Non-pressure chronic ulcer of right heel and midfoot with other specified severity; L97.428 Non-pressure chronic ulcer of left heel and midfoot with other specified severity; R73.9 Hyperglycemia, unspecified; I10 Essential (primary) hypertension; E78.00 Pure hypercholesterolemia, unspecified

== ENCOUNTER → 2017-09-16 | Outpatient (CLI) | payer OTHER | LOC: WCC 12:33 | PROVIDERS: ATTEND Podiatrist Foot Surgery | DX: E11.621 Type 2 diabetes mellitus with foot ulcer (principal); L97.428 Non-pressure chronic ulcer of left heel and midfoot with other specified severity; L97.418 Non-pressure chronic ulcer of right heel and midfoot with other specified severity; R73.9 Hyperglycemia, unspecified; I10 Essential (primary) hypertension; E78.00 Pure hypercholesterolemia, unspecified ==

== ENCOUNTER → 2017-09-20 | Outpatient (CLI) | payer OTHER | LOC: WCC 09:37 | PROVIDERS: ATTEND Podiatrist Foot Surgery | CPT/HCPCS: 36415; 82948 ==

== ENCOUNTER → 2017-09-23 | Outpatient (CLI) | payer OTHER ==
[~2017-09-23] MED LIST changes: +COLLAGENASE OINTMENT 30 GM TUBE ONE; -LIDOCAINE VISC 2% SOLN 15 ML UDC ONE; +MINERAL OIL/PETROLAT/GLYCERI 6OZ BTL ONE; -MUPIROCIN 2% OINT 22 GM TUBE ONE
== END ==
LOC: WCC 11:33
PROVIDERS: ATTEND Podiatrist Foot Surgery
DX: E11.621 Type 2 diabetes mellitus with foot ulcer (principal); L97.428 Non-pressure chronic ulcer of left heel and midfoot with other specified severity; L97.418 Non-pressure chronic ulcer of right heel and midfoot with other specified severity; R73.9 Hyperglycemia, unspecified; I10 Essential (primary) hypertension; E78.00 Pure hypercholesterolemia, unspecified

== ENCOUNTER → 2017-09-27 | Outpatient (CLI) | payer OTHER ==
[~2017-09-27] MED LIST changes: -MINERAL OIL/PETROLAT/GLYCERI 6OZ BTL ONE; +MUPIROCIN 2% OINT 22 GM TUBE ONE
== END ==
LOC: WCC 12:41
PROVIDERS: ATTEND Podiatrist Foot Surgery
DX: E11.621 Type 2 diabetes mellitus with foot ulcer (principal); L97.428 Non-pressure chronic ulcer of left heel and midfoot with other specified severity; L97.418 Non-pressure chronic ulcer of right heel and midfoot with other specified severity; R73.9 Hyperglycemia, unspecified; I10 Essential (primary) hypertension; E78.00 Pure hypercholesterolemia, unspecified